=== PATIENT | male | born 1980 | race Caucasian/White ===

== ENCOUNTER 2019-04-03 11:34 | Day surgery (SDC) | payer BC ==
[~2019-04-03 11:34] MED LIST: PROPOFOL INJ 200 MG/20 ML VIAL IV ONE
[2019-04-03] MEDS ORDERED: PROPOFOL INJ 200 MG/20 ML VIAL IV ONE (12:40)
[2019-04-03 13:30] VITALS: BP 115/68
--- NOTE | 2019-04-03 13:31 | Operative Report ---
Operative Report DATE OF SURGERY: 04/03/19 Operative Report: The risks, benefits and alternatives of the procedure including the risks of bleeding, perforation requiring surgery have been explained to the patient in detail and informed consent has been obtained. Patient is placed in a left, lateral decubital position. Timeout was called. Propofol medication is administered. Rectal examination is done which did not reveal any masses, tears or fissures. An Olympus videoscope was introduced into the patient's rectum. Scope was then carefully advanced all the way to the cecum. Intubation of the terminal ileum is done. From that point the scope was then sequentially pulled back through the various segments of the colon including the ascending colon, hepatic flexure, transverse colon, splenic flexure, descending colon and finally into the rectosigmoid portions of the colon. Retroflexion maneuvers performed. PREOPERATIVE DIAGNOSIS: Chronic diarrhea, change in bowel habits POSTOPERATIVE DIAGNOSIS: Biopsies obtained in the terminal ileum status post biopsy rule out Crohn's disease. Biopsies on right-hand side of the colon status post biopsy rule out collagenous colitis OPERATION: Colonoscopy with biopsy SURGEON: EVELYN GONZALEZ ANESTHESIA: LMAC TISSUE REMOVED OR ALTERED: As noted above. COMPLICATIONS: None. ESTIMATED BLOOD LOSS: None. INTRAOPERATIVE FINDINGS: As noted above. PROCEDURE: Patient tolerated the procedure well. No immediate postprocedure complications are noted. Patient is discharged in good condition. Discharge date 04/03/2019. Discharge diet: Regular. Discharge activity: Regular. 2 to 3-week follow-up to discuss findings. Patient is instructed to call the office or proceed to the emergency room should there be any further problems or questions. Wait on the pathology.
== END 2019-04-03 13:23 | disposition home or self-care (01) ==
LOC: END 11:34
PROVIDERS: ATTEND Internal Medicine Gastroenterology
DX: R19.4 Change in bowel habit (principal); Z88.0 Allergy status to penicillin
CPT/HCPCS: 45380; 88305 ×2; J2704; 811